=== PATIENT | male | born 1955 | race Caucasian/White ===

== ENCOUNTER 2017-04-26 04:11 | Emergency (ER) | payer OTHER ==
[~2017-04-26] VITALS: Ht 170.2 cm; Wt 83.9 kg
[~2017-04-26 04:11] MED LIST: FLEXERIL PO; HYDROCODONE-AP1 EAC6 PO; IBUPROFEN 800800 M1 PO; LEVAQUIN 500 M500 M4 PO; NEXIUM40 MG PO; TESTOSTERO200 MG/1 M IM; [UNRECOGNIZED DRUG - OTHER]
[2017-04-26 04:39] LABS: URINE BILIRUBIN NEGATIVE (Negative); URINE BLOOD 1+ (Negative); URINE CLARITY SL CLOUDY; URINE COLOR YELLOW; URINE GLUCOSE-RANDOM NEGATIVE (Negative); URINE KETONES NEGATIVE (Negative); URINE LEUKOCYTES-REFLEX 1+ (Negative); URINE NITRITE-REFLEX NEGATIVE (Negative); URINE PROTEIN 3+ (Negative); URINE SPECIFIC GRAVITY 1.025 (1.005-1.030); URINE UROBILINOGEN 0.2 E.U./dl (0.2-1.0)
[2017-04-26 04:55] LABS: BACTERIA-REFLEX >30 Many /HPF (None Seen); CASTS None Seen /LPF (None Seen); CRYSTALS None Seen /LPF (None Seen); MUCUS 4-6 Moderate strn/LPF (None Seen); SQUAMOUS 0-3 Few /LPF (0-3); URINE WBC-REFLEX >25 Many /HPF (0-5); WBC CLUMPS Moderate (None Seen)
[2017-04-26 05:08] LABS: INFLUENZA A ANTIGEN None Detected (None Detect); INFLUENZA B ANTIGEN None Detected (None Detect)
[2017-04-26 05:14] LABS: HEMATOCRIT 44.5 % (42.0-52.0); HEMOGLOBIN 15.2 gm/dL (14.0-18.0); MCH 30.7 pg (26.0-34.0); MCHC 34.2 g/dL (28.0-37.0); MCV 89.8 fL (80.0-100.0); NUCLEATED RBCS 0 /100WBC; PLATELET COUNT* 137 thou/uL (150-400); RBC 4.95 mil/uL (4.50-6.00); RDW-CV 13.4 % (10.5-14.5); WBC 12.6 thou/uL (4.0-11.0)
[2017-04-26 05:44] LABS: ANION GAP 10 mmol/L (7-16); BUN 18 mg/dL (7-18); CALCIUM 8.6 mg/dL (8.5-10.1); CHLORIDE 104 mmol/L (98-107); CO2 22 mmol/L (21-32); CREATININE 0.9 mg/dL (0.6-1.3); GLUCOSE 142 mg/dL (70-99); POTASSIUM 3.7 mmol/L (3.5-5.1); SODIUM 136 mmol/L (136-145)
[2017-04-26 05:49] LABS: ALKALINE PHOSPHATASE 82 U/L (46-116); SGOT 24 U/L (15-37); SGPT 35 U/L (30-65); TOTAL BILIRUBIN 0.4 mg/dL (<0.1-1.0); TOTAL PROTEIN 6.6 g/dL (6.4-8.2); TROPONIN-I LEVEL <0.06 ng/mL (<0.06)
[2017-04-26] MEDS ORDERED: LEVAQUIN 500 M500 MG PO (06:13)
[2017-04-26 06:36] LABS: ABSOLUTE EOSINOPHILS 0.4 thou/uL (0.0-0.7); ABSOLUTE LYMPHOCYTES 0.5 thou/uL (0.8-5.3); ABSOLUTE MONOCYTES 0.5 thou/uL (0.0-1.2); ABSOLUTE NEUTROPHILS 11.2 thou/uL (1.6-8.1); CLUMPED PLTS FEW; PLATELET ESTIMATE ADEQUATE
[2017-04-26 06:37] LABS: ANISOCYTOSIS 1+
[2017-04-26 06:51] VITALS: BP 124/76
--- NOTE | 2017-04-26 16:37 | EKG ---
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 : 1955 Requested By: Kriss Obrien Order Number: [id number] Saji MD: Fahad Garcia Measurements Intervals [place] Rate: 135 P: 33 FL: 139 QRS: 53 QRSD: 84 T: 6 QT: 289 QTc: 434 Interpretive Statements Sinus tachycardia Borderline low voltage, extremity leads Anteroseptal infarct, old Baseline wander in lead(s) II,III,aVF No previous ECG available for comparison Electronically Signed On 04-26-2017 16:37:12 [employer]EE SUPERVIS[employer] by Fahad Garcia [email or web address] <ELECTRONICALLY SIGNED> By: Aristeo Garcia MD, [facility] 04/26/17 1637 0414 0414 Aristeo Garcia MD, [facility] /EPI
== END 2017-04-26 06:51 | disposition home or self-care (01) ==
LOC: M.ERS 04:11
PROVIDERS: Emergency Medicine
DX: N39.0 Urinary tract infection, site not specified (principal); N40.0 Benign prostatic hyperplasia without lower urinary tract symptoms; F17.210 Nicotine dependence, cigarettes, uncomplicated

== ENCOUNTER 2017-07-21 09:01 | Emergency (ER) | payer OTHER ==
[~2017-07-21] VITALS: Ht 175.3 cm; Wt 90.7 kg
[~2017-07-21 09:01] MED LIST changes: +LEVAQUIN 500 M500 MG PO
[2017-07-21 10:14] LABS: URINE BILIRUBIN NEGATIVE (Negative); URINE BLOOD 3+ (Negative); URINE CLARITY CLEAR; URINE COLOR YELLOW; URINE GLUCOSE-RANDOM NEGATIVE (Negative); URINE KETONES NEGATIVE (Negative); URINE PROTEIN 1+ (Negative); URINE UROBILINOGEN 0.2 E.U./dl (0.2-1.0)
[2017-07-21 10:17] LABS: URINE LEUKOCYTES-REFLEX 3+ (Negative); URINE NITRITE-REFLEX POSITIVE (Negative)
[2017-07-21 10:20] LABS: SQUAMOUS 0-3 Few /LPF (0-3); URINE RBC >20 Many /HPF (0-2); URINE WBC-REFLEX >25 Many /HPF (0-5)
[2017-07-21 10:21] LABS: BACTERIA-REFLEX >30 Many /HPF (None Seen); CASTS None Seen /LPF (None Seen); CRYSTALS None Seen /LPF (None Seen); MUCUS None Seen strn/LPF (None Seen)
[2017-07-21] MEDS ORDERED: CIPROFLOXACIN500 M1 PO (10:32)
[2017-07-21 10:40] VITALS: BP 170/97
== END 2017-07-21 10:41 | disposition home or self-care (01) ==
LOC: M.ERS 09:01
PROVIDERS: Emergency Medicine
DX: N39.0 Urinary tract infection, site not specified (principal); F17.210 Nicotine dependence, cigarettes, uncomplicated

== ENCOUNTER 2017-07-25 14:44 | Emergency (ER) | payer OTHER ==
[~2017-07-25] VITALS: Ht 170.2 cm; Wt 81.7 kg
[~2017-07-25 14:44] MED LIST changes: +CIPROFLOXACIN500 M1 PO
[2017-07-25] MEDS ORDERED: NORVASC5 MG PO (14:55)
[2017-07-25] MEDS ORDERED: FLOMAX0.4 MG PO (14:55)
[2017-07-25] MEDS ORDERED: AUGMENTIN 400-1 EACH (14:56)
[2017-07-25 15:23] LABS: URINE BILIRUBIN NEGATIVE (Negative); URINE BLOOD 3+ (Negative); URINE CLARITY CLOUDY; URINE COLOR YELLOW; URINE GLUCOSE-RANDOM NEGATIVE (Negative); URINE KETONES NEGATIVE (Negative); URINE PROTEIN 2+ (Negative); URINE SPECIFIC GRAVITY >= 1.030 (1.005-1.030); URINE UROBILINOGEN 0.2 E.U./dl (0.2-1.0)
[2017-07-25 15:25] LABS: URINE LEUKOCYTES-REFLEX 2+ (Negative); URINE NITRITE-REFLEX POSITIVE (Negative)
[2017-07-25 15:42] LABS: BACTERIA-REFLEX >30 Many /HPF (None Seen); CASTS None Seen /LPF (None Seen); CRYSTALS None Seen /LPF (None Seen); SQUAMOUS 0-3 Few /LPF (0-3); URINE WBC-REFLEX >25 Many /HPF (0-5)
[2017-07-25 15:43] LABS: URINE RBC 3-10 Few /HPF (0-2)
[2017-07-25] MEDS ORDERED: AUGMENTIN 875-1 EACH PO (16:43)
[2017-07-25 16:45] VITALS: BP 148/86
[2017-07-26] MEDS ORDERED: NORCO 5-325 TA1 EACH PO (16:30)
== END 2017-07-25 16:46 | disposition home or self-care (01) ==
LOC: M.ERS 14:44
PROVIDERS: Physician Assistant
DX: N39.0 Urinary tract infection, site not specified (principal); N45.1 Epididymitis; N40.0 Benign prostatic hyperplasia without lower urinary tract symptoms; F17.210 Nicotine dependence, cigarettes, uncomplicated

== ENCOUNTER 2017-07-26 16:03 | Emergency (ER) | payer OTHER ==
[~2017-07-26] VITALS: Ht 170.2 cm; Wt 81.7 kg
[~2017-07-26 16:03] MED LIST changes: +AUGMENTIN 400-1 EACH; +AUGMENTIN 875-1 EACH PO; +FLOMAX0.4 MG PO; +NORVASC5 MG PO
[2017-07-26 16:18] VITALS: BP 138/83
[2017-07-26] MEDS ORDERED: NORCO 5-325 TA1 EACH PO (16:30)
== END 2017-07-26 16:36 | disposition home or self-care (01) ==
LOC: M.ERS 16:03
DX: N45.1 Epididymitis (principal); N40.0 Benign prostatic hyperplasia without lower urinary tract symptoms; F17.210 Nicotine dependence, cigarettes, uncomplicated

== ENCOUNTER → 2019-11-17 | Outpatient (CLI) | payer OTHER ==
[~2019-11-17] MED LIST changes: +NORCO 5-325 TA1 EACH PO; +TIZANIDINE HCL4 M1 PO; +TYLENOL #3
== END ==
LOC: M.PC 08:10
PROVIDERS: ATTEND Physical Medicine & Rehabilitation
DX: M47.816 Spondylosis without myelopathy or radiculopathy, lumbar region (principal); M51.36 Other intervertebral disc degeneration, lumbar region